=== PATIENT | female | born 1975 | race African-American/Black ===

== ENCOUNTER → 2021-05-05 12:53 | Outpatient (CLI) | payer OTHER, SELFPAY ==
--- NOTE | ~2021-05-05 | US_ITS ---
EXAMINATION: US transvaginal DATE: 05/05/2021 13:35 INDICATION: Fibroids TECHNIQUE: Multiple endovaginal sonographic images of the pelvis were obtained. COMPARISON: None. FINDINGS: The uterus measures 9.5 x 5.8 x 7.3 cm. There is a 2.6 x 2.3 x 2.7 cm intramural fibroid of the anterior uterine body. There is a 2.2 x 2.1 x 2.5 cm intramural fibroid of the posterior uterine body. There is a 2.4 x 2.4 x 2.8 cm fibroid of the anterior uterine body. The endometrial complex me asures 9 mm. The right ovary measures 1.4 x 2.4 x 2.1 cm. The left ovary measures 2.3 x 3.1 x 2.4 cm. There is normal vascular flow in the ovaries. There is no free fluid in the pelvis. IMPRESSION: 1. Uterine fibroids as described above. Reviewed, dictated and finalized at location F. ESSORI LEAD TEACHER
== END ==
PROVIDERS: Visit Provider Obstetrics & Gynecology
DX: D25.9 Leiomyoma of uterus, unspecified (principal)
CPT/HCPCS: 76830

== ENCOUNTER → 2022-05-12 13:16 | Outpatient (CLI) | payer BC, SELFPAY ==
--- NOTE | ~2022-05-12 | US_ITS ---
Pelvic ultrasound. Clinical History: First trimester , assess for dates. ASHLEY is 01/04/2023. Technique: Realtime transabdominal and transvaginal scanning of the pelvis was performed. Color flow Doppler and Doppler spectral analysis were performed. Findings: The uterus is anteverted, and contains probable gestational sac. Average gestational sac di ameter 1.8 cm corresponds to an estimated gestational age of 6 weeks 1 day. Probable yolk sac present without definite pole. 4.2 cm intramural fibroid noted anteriorly. Posterior internal fibroid measures 3.9 cm. The right ovary measures 2.6 x 1.5 x 1.9 cm. No significant right ovarian or adnexal mass is seen. The left ovary measures 3.2 x 1.9 x 3.1 cm. No significant left ovarian or adnexal mass is seen. There is no evidence of free fluid in the cul de sac. Impression: Early intrauterine gestation with estimated gestational age of 6 weeks 1 day by average sac diameter. Yolk sac present without visible pole. This presumably represents an early normal ve rsus the possibility of blighted ovum. Short-term follow-up ultrasound in 5-7 days could be considere d to reassess for development of pole and cardiac activity. Consider serial beta hCG monitoring . Uterine fibroids, as detailed above. Reviewed, dictated and finalized at location M. TRUCTION ASSISTANT Impression: Early intrauterine gestation with estimated gestational age of 6 weeks 1 day by average sac diameter. Yolk sac present without visible pole. This presum ably represents an early normal versus the possibility of blighted ov um. Short-term follow-up ultrasound in 5-7 days could be considered to reassess for development of pole and cardiac activity. Consider serial beta hCG m onitoring. Uterine fibroids, as detailed above.
== END ==
PROVIDERS: Visit Provider Obstetrics & Gynecology Gynecology
DX: Z36.87 Encounter for antenatal screening for uncertain dates (principal); Z3A.01 Less than 8 weeks gestation of pregnancy; D25.9 Leiomyoma of uterus, unspecified
CPT/HCPCS: 76817

== ENCOUNTER → 2022-05-20 09:42 | Outpatient (CLI) | payer BC, SELFPAY ==
--- NOTE | ~2022-05-20 | US_ITS ---
. EXAMINATION: US OB transvaginal DATE: 05/20/2022 10:12 INDICATION: Uncertain dates. Viability. TECHNIQUE: Real-time transvaginal pelvic ultrasound was performed. COMPARISON: Ultrasound 05/12/2022 FINDINGS: The uterus measures 11.2 x 7.5 x 7.4 cm. There is a gestational sac in the endometrial complex with m ammon diameter of 1.8 cm, which correlates with an estimated gestational age of 6 weeks and 2 days +/- 4 days. A yolk sac is noted. No pole is identified. The ovaries are not visualized. Again seen are multiple uterine fibroids measuring up to 4.3 cm. There is no free fluid in the pelvis. IMPRESSION: 1. Intrauterine gestational sac without change in size from 05/12/2022, which is suspicious for a fail ed . Serial beta hCGs are recommended. 2. Uterine fibroids. Reviewed, dictated and finalized at location A. POUNCER MACHINE OPERATOR IMPRESSION: 1. Intrauterine gestational sac without change in size from 05/12/2022, which is suspicious for a failed . Serial beta hCGs are recommended. 2. Uterine fibroids.
== END ==
PROVIDERS: PCP Obstetrics & Gynecology Gynecology; Visit Provider Obstetrics & Gynecology Gynecology
DX: Z36.9 Encounter for antenatal screening, unspecified (principal); Z3A.00 Weeks of gestation of pregnancy not specified; D25.9 Leiomyoma of uterus, unspecified
CPT/HCPCS: 76817

== ENCOUNTER → 2022-05-27 12:44 | Outpatient (CLI) | payer BC, SELFPAY ==
--- NOTE | ~2022-05-27 | US_ITS ---
Pelvic ultrasound. Clinical History: First trimester , assess for viability Technique: Realtime transabdominal and transvaginal scanning of the pelvis was performed. Color flow Doppler and Doppler spectral analysis were performed. Findings: The uterus is anteverted, and measures 13.8 x 10.1 x 9.1 cm. Intrauterine gestational sac i s present, with estimated gestational age of 7 weeks 6 days based on average sac diameter of 2.9 cm. Probable small pole present, with estimated gestational age of 6 weeks 0 days based on crown-ru mp length of 4 mm. No definite cardiac activity visualized. Multiple uterine fibroids are incidentall y noted.. The right ovary measures 2.6 x 1.8 x 2.5 cm. No significant right ovarian or adnexal mass is seen. The left ovary measures 3.2 x 1.5 x 3.5 cm. No significant left ovarian or adnexal mass is seen. There is no evidence of free fluid in the cul de sac. Impression: Intrauterine gestation, with somewhat discrepant estimated gestational ages based on crown-rump lengt h versus average sac diameter. Heart rate cannot be ascertained. This is of questionable vi ability. Consider short-term follow-up ultrasound in 5-7 days to attempt to reassess for further grow th of the pole and better delineation of cardiac activity. Reviewed, dictated and finalized at [facility]. OWS APPLICATION PACKAGER Impression: Intrauterine gestation, with somewhat discrepant estimated gestational ages bas ed on crown-rump length versus average sac diameter. Heart rate cannot be ascer tained. This is of questionable viability. Consider short-term follow -up ultrasound in 5-7 days to attempt to reassess for further growth of the fet al pole and better delineation of cardiac activity.
== END ==
PROVIDERS: PCP Obstetrics & Gynecology Gynecology; Visit Provider Obstetrics & Gynecology Gynecology
DX: O36.80X0 Pregnancy with inconclusive fetal viability, not applicable or unspecified (principal); Z3A.00 Weeks of gestation of pregnancy not specified
CPT/HCPCS: 76817

== ENCOUNTER → 2023-03-13 11:07 | Outpatient (CLI) | payer BC, SELFPAY ==
--- NOTE | ~2023-03-13 | US_ITS ---
Pelvic ultrasound. Clinical History: Abnormal uterine bleeding Technique: Realtime transabdominal and transvaginal scanning of the pelvis was performed. Color flow Doppler and Doppler spectral analysis were performed. Findings: The uterus is anteverted, and measures 10.6 x 6.3 x 6.5. The endometrial stripe has a thic kness of 15 mm. Anterior intramural fibroid measures 3.1 cm in maximum diameter. Additional anterior wall fibroid measures 3.67 m in diameter. Additional ill-defined fibroids may be present.. Neither ovary seen. No adnexal mass seen otherwise. There is no evidence of free fluid in the cul de sac. Impression: Uterine fibroids, as above. Nonvisualization of both ovaries. Reviewed, dictated and finalized at location M. AND GRAVEL PLANT OPERATOR Impression: Uterine fibroids, as above. Nonvisualization of both ovaries.
== END ==
PROVIDERS: PCP Advanced Practice Midwife; Visit Provider Advanced Practice Midwife
DX: N93.8 Other specified abnormal uterine and vaginal bleeding (principal); D25.9 Leiomyoma of uterus, unspecified
CPT/HCPCS: 76830

== ENCOUNTER 2023-04-17 03:35 | Day surgery (SDC) | payer BC, SELFPAY ==
[2023-04-13 09:44] VITALS: BMI 26.6
--- NOTE | 2023-04-13 09:58 | PC.NURSE ---
Report to the Outpatient Waiting Room, entrance under the green pavilion located off [facility], at time 11:15am on date 04-17-23. Planned Procedure Time: 1:15pm. Time changes happen often and if your time is changed the preop area will call you the afternoon before. - You and your visitor will be asked to self-screen and do not enter if you have any COVID symptoms. - A mask is optional within the hospital at this time. Patients may have clear liquids (water, carbonated beverages, clear teas, apple juice) until 3 hours prior to surgery (10:15am) with a maximum of 20 ounces. - No food from midnight until time of surgery Take the following medications with a SIP of water the morning of surgery: n/a DO NOT STOP ANY OF YOUR OTHER PRESCRIPTION MEDICATIONS PRIOR TO SURGERY ?EXCEPT THE FOLLOWING Medications to discontinue per physician vitamins and supplements Date to take last dose 04-13-23 Please no make-up, nail danish, hairspray, perfume, deodorant, or body powder the day of surgery. No jewelry (including any body piercings) or valuables the day of surgery, leave them at home. Please take a shower or bath the night before, or the morning of, surgery with an antibacterial soap. Wear comfortable, loose fitting clothing. - Jewelry must be removed prior to entering the operating room. Rings and piercings that are not removed may be cut off. - The hospital will not accept responsibility for valuables. - Please leave all valuables, including medications, at home the day of surgery. If you are going home after surgery, a licensed local flatbed driver must drive you home. - NO public transportation without another adult if you receive anesthesia. - We recommend that an adult stay with you for 24 hours following discharge. - We also recommend that you do not drive, make important decision, drink alcoholic beverages, or take any drugs that were not prescribed by your health care provider for at least 24 hours after your discharge time. Follow any additional instructions given to you from your surgeon. If you or anyone in your household have experienced Covid symptoms in the past week, please notify your surgeon or the nurse liaison at the phone number below for possible testing. Telephone instructions given to PATIENT and asked if any additional questions and then verbalized understanding. Patient advised to call surgeon office or pre surgery nurse liaison [phone] if any additional questions.
--- NOTE | 2023-04-17 08:20 | WPDHPUPDATE1 ---
History and Physical Update Update Date/Time: 04/17/23 08:20 History and Physical has been reviewed, including an updated exam of the patient. There are NO changes in the patient's condition. Risks, benefits, and alternatives have been discussed and questions answered. Patient agrees to proceed with procedure.
--- NOTE | 2023-04-17 08:20 | PM.HPGS ---
History of Present Illness History of Present Illness Consent: Risks, benefits, and alternatives have been discussed and questions answered. Patient agrees to proceed with procedure. Chief complaint: abnormal uterine bleeding, fibroids Narrative: Sommer Yeager is a 47 year old female with heavy and irregular menstrual bleeding. The ultrasound shows fibroids. It was recommended to undergo D&C hysteroscopy with possible myomectomy. Risks of infection, bleeding, perforation, and fluid imbalance were discussed. Patient voiced understanding and agrees to proceed. Review of Systems Review of Systems: not repeated day of surgery; patient states no changes in status [facility] Past Medical History Medical History (Updated 04/17/23 @ 08:24 by Mimi Meza MD) Spontaneous May 2022 Surgical History Surgical History (Updated 04/17/23 @ 08:23 by Mimi Meza MD) History of breast biopsy fibroadenoma 2020 Status post myomectomy laparoscopic 2012 Social History Social History Smoking status: Never smoker Second hand tobacco smoke exposure: No Alcohol intake: never Substance use: never Substance use type: does not use Living arrangements: with family Spiritual care concerns: No Meds Home Medications and Allergies Home Medications Medication Instructions Recorded Confirmed Type L.acidop,casei,lactis,rham-B.lact,christine 1 cap PO DAILY 04/13/23 04/13/23 History 625 mg (10 billion cell) capsule (Advanced Probiotic) cholecalciferol (vitamin D3) 1,250 1,250 mcg PO DAILY 04/13/23 04/13/23 History mcg (50,000 unit) capsule famotidine 20 mg tablet 20 mg PO PRN PRN Heartburn 04/13/23 04/13/23 History ferrous sulfate-vitamin C ER 65 1 cap PO DAILY 04/13/23 04/13/23 History mg-150 mg capsule,extended release Allergies Allergy/AdvReac Type Severity Reaction Status Date / Time pineapple Allergy Intermediate Swelling Verified 04/13/23 09:47 of Lip/Tongue/Throat amoxicillin AdvReac Mild Rash Verified 04/13/23 09:47 mushroom AdvReac Mild Itching Verified 04/13/23 09:47 Exam Const: General: healthy appearing and alert Orientation/consciousness: patient oriented x3 Resp: Effort & Inspection: normal respiratory effort GI: GI Palp: Yes Soft to palpation, No Tenderness to palpation present (GI) and No Palpable mass present : External Female Exam: normal external appearance Speculum Exam - Vagina: normal appearance of the vagina and normal vaginal discharge Speculum Exam - Cervix: normal appearance of the cervix Bimanual exam- vagina & uterus: consistency normal, enlarged ( approximately 14 week size) and other ( globular in shape) Bimanual Exam- Adnexa, other: normal adnexae and No adnexal tenderness Neuro: General: patient oriented x3 Assessment and Plan Assessment and plan (1) Menometrorrhagia: Code(s): N92.1 - Excessive and frequent menstruation with irregular cycle Status: Acute Assessment and Plan: Due to the irregular and heavy nature her cycles, was recommended to proceed with D&C hysteroscopy. Due to history of fibroids there is a possibility of a hysteroscopic myomectomy.
[2023-04-17 11:17] VITALS: BP 104/68; PULSE 77; RESP 20; TEMP 36.7; O2SAT 100
[2023-04-17] MEDS: ACETAMINOPHEN 500 MG TABLET 1000 MG PO (11:21)
[2023-04-17] MEDS: LACTATED RINGERS 1,000 ML 30 ML IV CONT (11:40)
--- NOTE | 2023-04-17 12:05 | WPDANESEPPF ---
Anes - Initial Pre Proc Eval Procedure: Operation Date: 04/17/23 13:15 Proposed Procedures p Hysteroscopy Dilation and Curettage - Mimi Meza MD Date/Time: 04/17/23 12:05 Surgeon: Mimi Meza MD Pre Op Diagnosis: abnormal uterine bleeding, fibroids Patient Data Age: 47 Gender: F Height: 1.59 m Weight: 63.5 kg Last Vital Signs Temp 36.7 C 04/17/23 11:17 Pulse 77 04/17/23 11:17 Resp 20 04/17/23 11:17 BP 104/68 04/17/23 11:17 Pulse Ox 100 04/17/23 11:17 O2 Del Method Room Air 04/17/23 11:17 Allergies Allergy/AdvReac Type Severity Reaction Status Date / Time pineapple Allergy Intermediate Swelling Verified 04/17/23 11:18 of Lip/Tongue/Throat amoxicillin AdvReac Mild Rash Verified 04/17/23 11:18 mushroom AdvReac Mild Itching Verified 04/17/23 11:18 Home Medications Medication Instructions Recorded Confirmed Type L.acidop,casei,lactis,rham-B.lact,christine 1 cap PO DAILY 04/13/23 04/17/23 History 625 mg (10 billion cell) capsule (Advanced Probiotic) cholecalciferol (vitamin D3) 1,250 1,250 mcg PO DAILY 04/13/23 04/17/23 History mcg (50,000 unit) capsule famotidine 20 mg tablet 20 mg PO PRN PRN Heartburn 04/13/23 04/13/23 History ferrous sulfate-vitamin C ER 65 1 cap PO DAILY 04/13/23 04/17/23 History mg-150 mg capsule,extended release misoprostol 200 mcg tablet 200 mcg PO HS 04/17/23 04/17/23 History Patient hx anesthesia problems: none Family hx anesthesia problems: none Results Review: All pre-operative results and documents have been reviewed as part of the pre-operative evaluation. [facility] Past Medical History Medical History Spontaneous May 2022 Surgical History Surgical History History of breast biopsy fibroadenoma 2019 Status post myomectomy laparoscopic 2012 Social History Social History Smoking status: Never smoker Second hand tobacco smoke exposure: No Alcohol intake: never Substance use: never Substance use type: does not use Living arrangements: with family Spiritual care concerns: No Anes - Eval Final PreProcedure Day of Procedure 04/17/23 12:05 Patient weight: normal Heart: regular rate and rhythm Lungs: clear to auscultation Airway: Mallampati scale class II Neurological: alert and oriented Last oral intake: >/= 8 hours ASA classification: II Emergent: no Anesthetic plan: proceed Anesthesia type and monitoring: general GIVS and standard monitoring Results Review: All pre-operative results and documents have been reviewed as part of the pre-operative evaluation. Informed Consent: The patient's anesthetic plan and its attendant risks and benefits were discussed with the patient/family/POA. Questions were solicited and answers provided to the satisfaction of the patient/family/POA.
--- NOTE | 2023-04-17 13:22 | P.OP_ITS ---
Procedure Note - Detailed Date of Procedure 04/17/23 Pre-op Diagnosis abnormal uterine bleeding, fibroids Post-op Diagnosis Same Procedure Performed D&C hysteroscopy with myomectomy Surgeon Mimi Meza MD Anesthesia MAC Findings The uterus sounds to 9cm. There are multiple lesions within the uterus. The right sidewall has a large sessile fibroid. The remainder of lesions have the consistency of polyps but appear very irregular. Fluid deficit of 820cc. Description of Procedure The patient is taken to the operating room and placed under anesthesia in the dorsal lithotomy position. She was prepped and draped in the usual sterile fashion. [place] speculum was placed in the vagina and the cervix grasped on the anterior lip with a tenaculum. The uterus is sounded to 9cm. The hysteroscope was placed with the above-stated findings. The Flex Aveeta resection device is placed through the hysteroscope and under direct visualization the majority of the tissue was removed and has the consistency of polyp. There is a large sessile fibroid on the right side wall that is significantly removed when the fluid became suddenly imbalanced. It went [id number] of fluid deficit to 800cc within approximately a minute. At the same time the visual field became bloody. Decision was made to stop the hysteroscopic portion. The hysteroscope and resection device were removed. The cervix is serially dilated to an 8 Hegar. The myoma grasper was used to remove the remainder of the right fibroid in pieces. Once the wall was smooth, the sharp curette was used to curette the endometrium until a good uterine cry was noted in all areas. All instruments were then removed and the patient taken to recovery in stable condition. Sponge, needle, and instrument counts are correct per the OR staff. Estimated Blood Loss 100 Drains No Packing No Pathology Yes ( Endometrial shavings curettings and myoma pieces) Complications No immediate complications Condition Stable Disposition PACU
[2023-04-17 13:23] VITALS: BP 126/80; PULSE 94; RESP 16
[2023-04-17 13:53] VITALS: BP 126/80; PULSE 83; RESP 14
[2023-04-17 14:15] VITALS: BP 122/80; PULSE 71; RESP 16
[2023-04-17] MEDS: oxyCODONE HCL (*CRX) 5 MG TAB IR PO (14:15)
[2023-04-17 14:45] VITALS: BP 111/66; PULSE 76; RESP 16
== END 2023-04-17 15:05 | disposition home or self-care (01) ==
PROVIDERS: Visit Provider Obstetrics & Gynecology Gynecology
PROC: 0U5B8ZZ Destruction of Endometrium, Via Natural or Artificial Opening Endoscopic (ICD-10-PCS; CPT 58563; principal; 2023-04-17 13:15)
DX: D25.9 Leiomyoma of uterus, unspecified (principal); N92.1 Excessive and frequent menstruation with irregular cycle; N84.0 Polyp of corpus uteri
CPT/HCPCS: 58561; 88305; A9270; J2250; J2704; J3010; J7120